=== PATIENT | male | born 1970 | race Two or more races ===

== ENCOUNTER 2021-07-07 13:55 | Inpatient (IN) | payer MEDICAID, OTHER ==
[~2021-07-07] VITALS: Ht 160 cm; Wt 61.0 kg
[2021-07-07] VITALS (7 sets, daily range): BP systolic 87–145; BP diastolic 57–93
[2021-07-07] MEDS ORDERED: ETOMIDATE (2MG/ML) 20ML VIAL IV ONE (13:59)
[2021-07-07] MEDS ORDERED: SUCCINYLCHOLINE CHLORIDE 20 MG/ML 10ML VIAL IV ONE (13:59)
[2021-07-07] MEDS: MIDAZOLAM DRIP 50 mg/50mL 50 ML IV SCH ×3 (14:02→20:42)
[2021-07-07] MEDS ORDERED: SODIUM CHLORIDE 0.9% 500 ML IVB ONE (14:15)
[2021-07-07 14:16] LABS: Hematocrit 43.2 % (41.0-53.0); Hemoglobin 14.5 g/dL (13.5-17.5); Mean Corpuscular Hemoglobin 32.4 pg (28.0-32.0); Mean Corpuscular Hgb Conc. 33.6 g/dL (32.0-36.0); Mean Corpuscular Volume 96.2 fL (80.0-100.0); Red Blood Cells 4.49 10^6/uL (4.5-5.90); Red Cell Distribution Width 12.9 % (11.8-14.3); White Blood Cell 8.2 10^3/uL (4.4-10.8)
[2021-07-07 14:20] LABS: Band Neutrophils % (manual) 0; Basophils % (manual) 0 (0.0-2.0); Blast Cells 0; Metamyelocytes % 0; Myelocytes % 0; Promyelocytes % 0; Reactive Lymphocytes 0
[2021-07-07] MEDS ORDERED: IOHEXOL 300 MG/ML 100ML BOTTLE IJ ONE ×2 (14:20→14:23)
[2021-07-07] MEDS ORDERED: fentaNYL Drip 2500mCg/250mlNS 250 ML IV ONE (14:21)
[2021-07-07] MEDS: fentaNYL Drip 2500mCg/250mlNS 250 ML IV SCH (14:23)
[2021-07-07 14:32] LABS: INR 1.05 (0.9-1.15); Partial Thromboplastin Time 26.5 sec (23.6-33.0)
[2021-07-07 14:38] LABS: Magnesium 2.7 mg/dL (1.6-2.6)
[2021-07-07 14:39] LABS: Albumin 3.3 g/dL (3.4-5.0); BUN/Creatinine Ratio 9.9; Calcium 8.4 mg/dL (8.5-10.1); Potassium 3.1 mmol/L (3.5-5.1)
[2021-07-07 14:41] LABS: Bilirubin, Total 0.6 mg/dL (0.2-1.0); Total Protein 6.7 g/dL (6.4-8.2)
[2021-07-07 14:46] LABS: Lactic Acid w/Reflex 8.5 mmol/L (0.4-2.0)
[2021-07-07] MEDS ORDERED: POTASSIUM CHL 20MEQ/100ML 100 ML IV ONE ×2 (15:15→17:15)
[2021-07-07 15:31] LABS: Eosinophils % (manual) 4 (0-7); Lymphocytes % (manual) 49 (10.0-50.0); Monocytes % (manual) 24 (0-12)
[2021-07-07 15:34] LABS: Alcohol, Urine 8.7 mg/dL (0-10); Amphetamine Screen, Urine NEGATIVE (NEGATIVE); Barbiturate Scree,Urine NEGATIVE (NEGATIVE); Benzodiazephine Screen, Urine NEGATIVE (NEGATIVE); Cannabinoid Screen, Urine NEGATIVE (NEGATIVE); Cocaine Screen, Urine NEGATIVE (NEGATIVE); Opiate Scree,Urine NEGATIVE (NEGATIVE); Phencyclidine Screen, Urine NEGATIVE (NEGATIVE)
[2021-07-07 15:42] LABS: Urine Bacteria FEW /hpf (None Seen); Urine Blood 2+ /uL (Negative); Urine Hyaline Cast FEW /lpf (0 - 2); Urine Mucus FEW (None Seen); Urine Specific Gravity 1.018 (1.001-1.035); Urine Sperm PRESENT /hpf (None Seen); Urine WBC 101 /hpf (0 - 3)
[2021-07-07] MEDS ORDERED: cefTRIAXone 1GM/50ML D5W 50 ML IV ONE ×2 (16:45→17:15)
[2021-07-07] MEDS: SODIUM CHLORIDE 0.9% 1,000 ML IV SCH (17:04)
[2021-07-07] MEDS ORDERED: HEPARIN SODIUM (PORCINE) 5000 UNITS/ML 1ML VIAL IV ONE (17:30)
[2021-07-07 17:32] LABS: Cholesterol 247 mg/dL (< 200)
[2021-07-07 17:35] LABS: HDL Cholesterol 45 mg/dL (40-59); LDL Cholesterol 172 mg/dL (< 100); Triglycerides 204 mg/dL (< 150)
[2021-07-07] MEDS ORDERED: AZITHROMYCIN 500MG/ 250ML 250 ML IV ONE (18:00)
[2021-07-07 18:18] LABS: INR 1.07 (0.9-1.15); Partial Thromboplastin Time 25.9 sec (23.6-33.0)
[2021-07-07 18:38] LABS: Basophils # (auto) 0 10 ^3/uL (0-0.2); Basophils % (auto) 0.3 % (0.0-2.0); Eosinophils # (auto) 0 10 ^3/uL (0-0.8); Eosinophils % (auto) 0.2 % (0.0-7.0); Hematocrit 41.7 % (41.0-53.0); Lymphocytes # (auto) 1.6 10 ^3/uL (0.4-5.4); Lymphocytes % (auto) 13.6 % (10.0-50.0); Mean Corpuscular Hemoglobin 31.9 pg (28.0-32.0); Mean Corpuscular Hgb Conc. 33.6 g/dL (32.0-36.0); Mean Corpuscular Volume 94.9 fL (80.0-100.0); Monocytes # (auto) 1.1 10 ^3/uL (0-1.3); Monocytes % (auto) 9.6 % (0.0-12.0); Neutrophils # (auto) 8.9 10 ^3/uL (1.6-8.6); Neutrophils % (auto) 76.3 % (37.0-80.0); Nucleated Red Blood Cells % 0.1 %; Red Cell Distribution Width 12.5 % (11.8-14.3); White Blood Cell 11.7 10^3/uL (4.4-10.8)
[2021-07-07] MEDS: HEPARIN DRIP/D5W 100UNITS/ML 250 ML IV SCH (18:40)
[2021-07-08] VITALS (39 sets, daily range): BP systolic 76–134; BP diastolic 50–83
[2021-07-08] MEDS: MIDAZOLAM DRIP 50 mg/50mL 50 ML IV SCH ×8 (00:02→23:22)
[2021-07-08 01:15] LABS: INR 1.07 (0.9-1.15); Partial Thromboplastin Time 47.4 sec (23.6-33.0)
[2021-07-08 01:49] LABS: Lactic Acid w/Reflex 2.1 mmol/L (0.4-2.0)
[2021-07-08] MEDS ORDERED: NOREPINEPHRINE 8 MG/250ML KIT 250 ML IV ONE (02:08)
[2021-07-08] MEDS: NOREPINEPHRINE 8 MG/250ML KIT 250 ML IV SCH ×2 (02:17→17:57)
[2021-07-08] MEDS: SODIUM CHLORIDE 0.9% 1,000 ML IV SCH (02:38)
[2021-07-08 06:31] LABS: Basophils # (auto) 0 10 ^3/uL (0-0.2); Basophils % (auto) 0.4 % (0.0-2.0); Eosinophils # (auto) 0 10 ^3/uL (0-0.8); Eosinophils % (auto) 0.1 % (0.0-7.0); Hematocrit 35.9 % (41.0-53.0); Hemoglobin 12.5 g/dL (13.5-17.5); Lymphocytes # (auto) 1.2 10 ^3/uL (0.4-5.4); Mean Corpuscular Hemoglobin 33.5 pg (28.0-32.0); Mean Corpuscular Hgb Conc. 34.8 g/dL (32.0-36.0); Mean Corpuscular Volume 96.2 fL (80.0-100.0); Monocytes # (auto) 0.9 10 ^3/uL (0-1.3); Monocytes % (auto) 9.8 % (0.0-12.0); Neutrophils # (auto) 6.7 10 ^3/uL (1.6-8.6); Neutrophils % (auto) 75.7 % (37.0-80.0); Red Blood Cells 3.73 10^6/uL (4.5-5.90); Red Cell Distribution Width 12.7 % (11.8-14.3); White Blood Cell 8.9 10^3/uL (4.4-10.8)
[2021-07-08 06:44] LABS: Calcium 7.5 mg/dL (8.5-10.1); Potassium 4.9 mmol/L (3.5-5.1)
[2021-07-08 06:50] LABS: Albumin 2.9 g/dL (3.4-5.0); BUN/Creatinine Ratio 20.5
[2021-07-08 06:54] LABS: Bilirubin, Total 0.7 mg/dL (0.2-1.0); Total Protein 5.8 g/dL (6.4-8.2)
[2021-07-08 09:31] LABS: INR 1.08 (0.9-1.15); Partial Thromboplastin Time 65.5 sec (23.6-33.0)
[2021-07-08] MEDS: cefTRIAXone 1GM/50ML D5W 50 ML IV SCH (09:41)
[2021-07-08] MEDS ORDERED: ENOXAPARIN SOD 40 MG/0.4 ML SYRINGE SC SCH (10:00)
[2021-07-08] MEDS ORDERED: PROPOFOL 100 ML IV ONE (11:08)
[2021-07-08] MEDS: FUROSEMIDE 40 MG/4 ML VIAL IV SCH ×2 (11:13→18:04)
[2021-07-08] MEDS: AZITHROMYCIN 500MG/ 250ML 250 ML IV SCH (11:13)
[2021-07-08] MEDS: PROPOFOL 100 ML IV SCH (11:16)
[2021-07-08] MEDS: fentaNYL Drip 2500mCg/250mlNS 250 ML IV SCH (15:51)
[2021-07-08 17:41] LABS: INR 1.06 (0.9-1.15)
[2021-07-08] MEDS: HEPARIN DRIP/D5W 100UNITS/ML 250 ML IV SCH (17:56)
[2021-07-09] VITALS (104 sets, daily range): BP systolic 93–140; BP diastolic 42–77
[2021-07-09 02:02] LABS: INR 1.07 (0.9-1.15); Partial Thromboplastin Time 52.7 sec (23.6-33.0)
[2021-07-09] MEDS: MIDAZOLAM DRIP 50 mg/50mL 50 ML IV SCH ×7 (02:42→23:20)
[2021-07-09] MEDS: fentaNYL Drip 2500mCg/250mlNS 250 ML IV SCH ×3 (02:42→23:20)
[2021-07-09] MEDS: FUROSEMIDE 40 MG/4 ML VIAL IV SCH ×2 (06:05→17:33)
[2021-07-09] MEDS: PROPOFOL 100 ML IV SCH ×3 (06:06→17:33)
[2021-07-09 06:29] LABS: Basophils # (auto) 0 10 ^3/uL (0-0.2); Basophils % (auto) 0.7 % (0.0-2.0); Eosinophils # (auto) 0.2 10 ^3/uL (0-0.8); Eosinophils % (auto) 2.1 % (0.0-7.0); Hematocrit 34.1 % (41.0-53.0); Lymphocytes # (auto) 1.4 10 ^3/uL (0.4-5.4); Lymphocytes % (auto) 19.1 % (10.0-50.0); Mean Corpuscular Hemoglobin 33.1 pg (28.0-32.0); Mean Corpuscular Hgb Conc. 35.1 g/dL (32.0-36.0); Mean Corpuscular Volume 94.2 fL (80.0-100.0); Monocytes # (auto) 0.6 10 ^3/uL (0-1.3); Neutrophils # (auto) 4.9 10 ^3/uL (1.6-8.6); Neutrophils % (auto) 69.1 % (37.0-80.0); Nucleated Red Blood Cells % 0.1 %; Red Blood Cells 3.62 10^6/uL (4.5-5.90); Red Cell Distribution Width 12.6 % (11.8-14.3); White Blood Cell 7.1 10^3/uL (4.4-10.8)
[2021-07-09 06:40] LABS: Albumin 2.5 g/dL (3.4-5.0); BUN/Creatinine Ratio 17.9; Calcium 8.1 mg/dL (8.5-10.1)
[2021-07-09 06:43] LABS: Bilirubin, Total 0.6 mg/dL (0.2-1.0); Total Protein 5.6 g/dL (6.4-8.2)
[2021-07-09] MEDS ORDERED: POTASSIUM CHL 20MEQ/100ML 100 ML IV ONE (08:00)
[2021-07-09] MEDS: cefTRIAXone 1GM/50ML D5W 50 ML IV SCH (08:36)
[2021-07-09 09:30] LABS: INR 1.05 (0.9-1.15); Partial Thromboplastin Time 42.7 sec (23.6-33.0)
[2021-07-09] MEDS: AZITHROMYCIN 500MG/ 250ML 250 ML IV SCH (10:08)
[2021-07-09] MEDS ORDERED: SPIRONOLACTONE 25 MG TAB PO ONE (11:30)
[2021-07-09] MEDS ORDERED: MAGNESIUM SULFATE 1GM/100ML 100 ML IV ONE (11:30)
[2021-07-09] MEDS: POTASSIUM CHL 20MEQ/100ML 100 ML IV SCH ×3 (11:45→15:33)
[2021-07-09] MEDS ORDERED: ACETAMINOPHEN 325 MG TAB PO ONE (15:18)
[2021-07-09] MEDS: ACETAMINOPHEN 325 MG TAB PO PRN ×2 (15:28→22:43)
[2021-07-09] MEDS: DOXYCYCLINE 100 MG TAB/CAP GT SCH ×2 (15:34→22:41)
[2021-07-09] MEDS: HEPARIN DRIP/D5W 100UNITS/ML 250 ML IV SCH (18:25)
[2021-07-09] MEDS ORDERED: HEPARIN SODIUM (PORCINE) 5000 UNITS/ML 1ML VIAL IV ONE (18:30)
[2021-07-09] MEDS: CEFEPIME 1GM/ 50ML 50 ML IV SCH (22:41)
[2021-07-09] MEDS: CARVEDILOL 3.125 MG TAB PO SCH (22:42)
[2021-07-10] VITALS (106 sets, daily range): BP systolic 93–184; BP diastolic 36–79
[2021-07-10 01:14] LABS: INR 1.07 (0.9-1.15)
[2021-07-10] MEDS: MIDAZOLAM DRIP 50 mg/50mL 50 ML IV SCH ×6 (02:02→17:37)
[2021-07-10] MEDS: PROPOFOL 100 ML IV SCH ×3 (02:02→20:57)
[2021-07-10] MEDS: NOREPINEPHRINE 8 MG/250ML KIT 250 ML IV SCH (02:15)
[2021-07-10 05:30] LABS: Potassium 3.8 mmol/L (3.5-5.1)
[2021-07-10 05:48] LABS: Albumin 2.5 g/dL (3.4-5.0); BUN/Creatinine Ratio 14.4; Bilirubin, Total 0.9 mg/dL (0.2-1.0); Calcium 8.6 mg/dL (8.5-10.1)
[2021-07-10] MEDS: FUROSEMIDE 40 MG/4 ML VIAL IV SCH ×2 (06:25→17:37)
[2021-07-10] MEDS: CEFEPIME 1GM/ 50ML 50 ML IV SCH ×3 (06:26→22:21)
[2021-07-10] MEDS: DOXYCYCLINE 100 MG TAB/CAP GT SCH ×2 (09:19→22:19)
[2021-07-10] MEDS: CARVEDILOL 3.125 MG TAB PO SCH ×2 (09:21→22:00)
[2021-07-10 10:02] LABS: Basophils # (auto) 0 10 ^3/uL (0-0.2); Basophils % (auto) 0.5 % (0.0-2.0); Eosinophils # (auto) 0.2 10 ^3/uL (0-0.8); Eosinophils % (auto) 3.7 % (0.0-7.0); Hematocrit 35.3 % (41.0-53.0); Hemoglobin 11.9 g/dL (13.5-17.5); Lymphocytes % (auto) 19.4 % (10.0-50.0); Mean Corpuscular Hemoglobin 31.9 pg (28.0-32.0); Mean Corpuscular Hgb Conc. 33.6 g/dL (32.0-36.0); Mean Corpuscular Volume 94.9 fL (80.0-100.0); Monocytes # (auto) 0.4 10 ^3/uL (0-1.3); Monocytes % (auto) 7.9 % (0.0-12.0); Neutrophils # (auto) 3.5 10 ^3/uL (1.6-8.6); Neutrophils % (auto) 68.5 % (37.0-80.0); Red Blood Cells 3.71 10^6/uL (4.5-5.90); Red Cell Distribution Width 12.8 % (11.8-14.3); White Blood Cell 5.1 10^3/uL (4.4-10.8)
[2021-07-10 10:22] LABS: INR 1.05 (0.9-1.15); Partial Thromboplastin Time 58.4 sec (23.6-33.0)
[2021-07-10] MEDS ORDERED: POTASSIUM EFFERVESENT TAB 25 MEQ PO ONE (11:45)
[2021-07-10] MEDS ORDERED: POTASSIUM CHL 20MEQ/100ML 100 ML IV ONE (11:45)
[2021-07-10] MEDS: ACETAMINOPHEN 325 MG TAB PO PRN ×2 (12:31→20:08)
[2021-07-10] MEDS: ENALAPRIL MALEATE 2.5 MG TAB PO SCH (12:31)
[2021-07-10] MEDS ORDERED: Glucerna 1.2 Cal 1Liter BOTTLE GT SCH (16:00)
[2021-07-10 16:38] LABS: INR 1.05 (0.9-1.15); Partial Thromboplastin Time 31.7 sec (23.6-33.0)
[2021-07-10] MEDS ORDERED: HEPARIN SODIUM (PORCINE) 5000 UNITS/ML 1ML VIAL IV ONE (17:15)
[2021-07-10] MEDS: HEPARIN DRIP/D5W 100UNITS/ML 250 ML IV SCH (17:45)
[2021-07-10] MEDS: fentaNYL Drip 2500mCg/250mlNS 250 ML IV SCH (17:46)
[2021-07-10] MEDS: Pro-Stat SF 30ml Vanilla GT SCH (22:19)
[2021-07-11] VITALS (102 sets, daily range): BP systolic 106–186; BP diastolic 41–85
[2021-07-11] MEDS: MIDAZOLAM DRIP 50 mg/50mL 50 ML IV SCH ×8 (01:22→20:04)
[2021-07-11] MEDS: NOREPINEPHRINE 8 MG/250ML KIT 250 ML IV SCH (02:15)
[2021-07-11] MEDS: PROPOFOL 100 ML IV SCH ×3 (03:10→17:21)
[2021-07-11 05:14] LABS: Basophils # (auto) 0 10 ^3/uL (0-0.2); Basophils % (auto) 0.5 % (0.0-2.0); Eosinophils # (auto) 0.2 10 ^3/uL (0-0.8); Eosinophils % (auto) 2.9 % (0.0-7.0); Hematocrit 35.3 % (41.0-53.0); Hemoglobin 12.3 g/dL (13.5-17.5); Lymphocytes % (auto) 16.6 % (10.0-50.0); Mean Corpuscular Hgb Conc. 34.8 g/dL (32.0-36.0); Mean Corpuscular Volume 94.7 fL (80.0-100.0); Monocytes # (auto) 0.6 10 ^3/uL (0-1.3); Monocytes % (auto) 9.9 % (0.0-12.0); Neutrophils # (auto) 4.1 10 ^3/uL (1.6-8.6); Neutrophils % (auto) 70.1 % (37.0-80.0); Nucleated Red Blood Cells % 0.1 %; Red Blood Cells 3.73 10^6/uL (4.5-5.90); Red Cell Distribution Width 12.6 % (11.8-14.3); White Blood Cell 5.8 10^3/uL (4.4-10.8)
[2021-07-11 05:30] LABS: Calcium 8.6 mg/dL (8.5-10.1); Potassium 3.3 mmol/L (3.5-5.1)
[2021-07-11 05:33] LABS: BUN/Creatinine Ratio 15.7
[2021-07-11] MEDS: ACETAMINOPHEN 325 MG TAB PO PRN ×3 (06:01→20:03)
[2021-07-11] MEDS ORDERED: POTASSIUM EFFERVESENT TAB 25 MEQ GT ONE (06:30)
[2021-07-11] MEDS: CEFEPIME 1GM/ 50ML 50 ML IV SCH ×3 (06:39→22:30)
[2021-07-11] MEDS: FUROSEMIDE 40 MG/4 ML VIAL IV SCH ×2 (06:39→17:21)
[2021-07-11 08:44] LABS: INR 1.12 (0.9-1.15); Partial Thromboplastin Time 65.2 sec (23.6-33.0)
[2021-07-11] MEDS: POTASSIUM EFFERVESENT TAB 25 MEQ PO SCH (10:05)
[2021-07-11] MEDS: DOXYCYCLINE 100 MG TAB/CAP GT SCH ×2 (10:05→22:42)
[2021-07-11] MEDS: CARVEDILOL 3.125 MG TAB PO SCH ×2 (10:05→22:46)
[2021-07-11] MEDS: Pro-Stat SF 30ml Vanilla GT SCH ×2 (10:06→22:00)
[2021-07-11] MEDS: ENALAPRIL MALEATE 2.5 MG TAB PO SCH (10:06)
[2021-07-11] MEDS: fentaNYL Drip 2500mCg/250mlNS 250 ML IV SCH (10:22)
[2021-07-11] MEDS: HEPARIN DRIP/D5W 100UNITS/ML 250 ML IV SCH (13:58)
[2021-07-11] MEDS: SODIUM CHLOR 0.9% PF (SALINE LOCK) 10ML VIAL/SYR IV SCH (22:44)
[2021-07-12] VITALS (86 sets, daily range): BP systolic 86–183; BP diastolic 39–101
[2021-07-12] MEDS: fentaNYL Drip 2500mCg/250mlNS 250 ML IV SCH ×2 (01:00→17:31)
[2021-07-12 01:03] LABS: INR 1.11 (0.9-1.15)
[2021-07-12 01:07] LABS: Partial Thromboplastin Time 85.1 sec (23.6-33.0)
[2021-07-12] MEDS: NOREPINEPHRINE 8 MG/250ML KIT 250 ML IV SCH (02:15)
[2021-07-12] MEDS: ACETAMINOPHEN 325 MG TAB PO PRN ×2 (05:00→13:48)
[2021-07-12] MEDS: CEFEPIME 1GM/ 50ML 50 ML IV SCH ×3 (05:13→20:53)
[2021-07-12] MEDS: FUROSEMIDE 40 MG/4 ML VIAL IV SCH ×2 (05:21→19:00)
[2021-07-12 05:26] LABS: Basophils # (auto) 0 10 ^3/uL (0-0.2); Basophils % (auto) 0.8 % (0.0-2.0); Eosinophils # (auto) 0.2 10 ^3/uL (0-0.8); Eosinophils % (auto) 4.4 % (0.0-7.0); Hematocrit 34.6 % (41.0-53.0); Hemoglobin 11.8 g/dL (13.5-17.5); Lymphocytes # (auto) 0.8 10 ^3/uL (0.4-5.4); Lymphocytes % (auto) 20.2 % (10.0-50.0); Mean Corpuscular Hemoglobin 32.3 pg (28.0-32.0); Monocytes # (auto) 0.4 10 ^3/uL (0-1.3); Monocytes % (auto) 9.2 % (0.0-12.0); Neutrophils # (auto) 2.7 10 ^3/uL (1.6-8.6); Neutrophils % (auto) 65.4 % (37.0-80.0); Nucleated Red Blood Cells % 0.1 %; Red Blood Cells 3.64 10^6/uL (4.5-5.90); Red Cell Distribution Width 12.6 % (11.8-14.3); White Blood Cell 4.1 10^3/uL (4.4-10.8)
[2021-07-12 05:41] LABS: Calcium 8.7 mg/dL (8.5-10.1); Potassium 3.3 mmol/L (3.5-5.1)
[2021-07-12 05:44] LABS: BUN/Creatinine Ratio 21.1
[2021-07-12] MEDS: HEPARIN DRIP/D5W 100UNITS/ML 250 ML IV SCH (06:35)
[2021-07-12] MEDS: MIDAZOLAM DRIP 50 mg/50mL 50 ML IV SCH ×7 (07:22→20:42)
[2021-07-12 09:52] LABS: INR 1.11 (0.9-1.15)
[2021-07-12 09:54] LABS: Partial Thromboplastin Time 71.7 sec (23.6-33.0)
[2021-07-12] MEDS: Pro-Stat SF 30ml Vanilla GT SCH ×2 (10:00→20:50)
[2021-07-12] MEDS ORDERED: HEPARIN DRIP/D5W 100UNITS/ML 250 ML IV SCH (10:30)
[2021-07-12] MEDS: CARVEDILOL 3.125 MG TAB PO SCH ×2 (10:52→20:52)
[2021-07-12] MEDS: PROPOFOL 100 ML IV SCH ×3 (10:52→19:01)
[2021-07-12] MEDS: SODIUM CHLOR 0.9% PF (SALINE LOCK) 10ML VIAL/SYR IV SCH ×2 (10:52→20:53)
[2021-07-12] MEDS: DOXYCYCLINE 100 MG TAB/CAP GT SCH ×2 (10:53→20:53)
[2021-07-12] MEDS: ENALAPRIL MALEATE 2.5 MG TAB PO SCH (10:53)
[2021-07-12] MEDS: POTASSIUM EFFERVESENT TAB 25 MEQ PO SCH (10:56)
[2021-07-12 15:03] LABS: Magnesium 1.9 mg/dL (1.6-2.6); Phosphorus 4.3 mg/dL (2.5-4.90)
[2021-07-12] MEDS ORDERED: MAGNESIUM SULFATE 1GM/100ML 100 ML IV ONE (15:30)
[2021-07-13] VITALS (98 sets, daily range): BP systolic 73–185; BP diastolic 29–119
[2021-07-13] MEDS: MIDAZOLAM DRIP 50 mg/50mL 50 ML IV SCH ×7 (00:02→22:44)
[2021-07-13] MEDS: PROPOFOL 100 ML IV SCH ×3 (01:03→14:39)
[2021-07-13] MEDS: NOREPINEPHRINE 8 MG/250ML KIT 250 ML IV SCH ×2 (02:15→03:36)
[2021-07-13] MEDS: FUROSEMIDE 40 MG/4 ML VIAL IV SCH (06:00)
[2021-07-13] MEDS: CEFEPIME 1GM/ 50ML 50 ML IV SCH ×3 (06:15→22:32)
[2021-07-13] MEDS: fentaNYL Drip 2500mCg/250mlNS 250 ML IV SCH ×2 (08:45→22:46)
[2021-07-13] MEDS: SODIUM CHLOR 0.9% PF (SALINE LOCK) 10ML VIAL/SYR IV SCH ×2 (10:00→22:33)
[2021-07-13] MEDS: POTASSIUM EFFERVESENT TAB 25 MEQ PO SCH (10:00)
[2021-07-13] MEDS: CARVEDILOL 3.125 MG TAB PO SCH (10:00)
[2021-07-13] MEDS: Pro-Stat SF 30ml Vanilla GT SCH ×2 (10:00→22:00)
[2021-07-13] MEDS: ENALAPRIL MALEATE 2.5 MG TAB PO SCH (10:00)
[2021-07-13 10:18] LABS: Albumin 2.6 g/dL (3.4-5.0); Potassium 3.7 mmol/L (3.5-5.1)
[2021-07-13 10:22] LABS: BUN/Creatinine Ratio 25.7; Bilirubin, Total 0.6 mg/dL (0.2-1.0); Total Protein 6.8 g/dL (6.4-8.2)
[2021-07-13] MEDS ORDERED: POTASSIUM CHL 20MEQ/100ML 100 ML IV ONE (11:00)
[2021-07-13] MEDS: POTASSIUM CHL 20MEQ/100ML 100 ML IV SCH ×2 (12:40→15:29)
[2021-07-13] MEDS ORDERED: TPN PER PHARMACY 0 ML IV SCH (13:15)
[2021-07-13] MEDS ORDERED: PANTOPRAZOLE 40 MG/10 ML VIAL INJ IV ONE (13:45)
[2021-07-13] MEDS: DOXYCYCLINE 100MG/250ML 250 ML IV SCH (14:06)
[2021-07-13] MEDS ORDERED: DEXTROSE (50%) 50ML SYRG IV SCH (15:45)
[2021-07-13] MEDS: InsuLIN REG 1unit/0.01ml Soln (100units/ml) SC SCH (18:00)
[2021-07-13] MEDS: ACCU-CHEK COMFORT CURVE STRIP VI SCH (18:10)
[2021-07-13] MEDS ORDERED: AMINO ACID INFUSION IN D10W 1,000 ML IV NR (20:00)
[2021-07-14] VITALS (100 sets, daily range): BP systolic 72–180; BP diastolic 40–113
[2021-07-14] MEDS: DOXYCYCLINE 100MG/250ML 250 ML IV SCH ×2 (01:19→17:57)
[2021-07-14 04:51] LABS: Potassium 3.8 mmol/L (3.5-5.1)
[2021-07-14 04:57] LABS: Albumin 2.5 g/dL (3.4-5.0); BUN/Creatinine Ratio 28.8; Calcium 8.7 mg/dL (8.5-10.1)
[2021-07-14] MEDS: PROPOFOL 100 ML IV SCH ×2 (04:57→13:22)
[2021-07-14 04:59] LABS: Bilirubin, Total 0.6 mg/dL (0.2-1.0); Phosphorus 2.5 mg/dL (2.5-4.90); Total Protein 6.3 g/dL (6.4-8.2)
[2021-07-14] MEDS: MIDAZOLAM DRIP 50 mg/50mL 50 ML IV SCH ×3 (05:34→17:51)
[2021-07-14] MEDS: CEFEPIME 1GM/ 50ML 50 ML IV SCH ×3 (05:34→22:20)
[2021-07-14] MEDS: ACCU-CHEK COMFORT CURVE STRIP VI SCH ×5 (05:35→23:55)
[2021-07-14] MEDS: InsuLIN REG 1unit/0.01ml Soln (100units/ml) SC SCH ×4 (05:40→18:00)
[2021-07-14] MEDS ORDERED: DIGOXIN (250MCG/ML) 2 ML AMPULE IV ONE (08:15)
[2021-07-14] MEDS: fentaNYL Drip 2500mCg/250mlNS 250 ML IV SCH (09:22)
[2021-07-14] MEDS: Pro-Stat SF 30ml Vanilla GT SCH ×2 (10:00→22:00)
[2021-07-14] MEDS: PANTOPRAZOLE 40 MG/10 ML VIAL INJ IV SCH (10:12)
[2021-07-14] MEDS: FUROSEMIDE 20 MG/2 ML VIAL IV SCH (10:13)
[2021-07-14] MEDS: SODIUM CHLOR 0.9% PF (SALINE LOCK) 10ML VIAL/SYR IV SCH ×2 (10:13→22:20)
[2021-07-14] MEDS: AMIODARONE HCL 200 MG TAB PO SCH ×2 (10:13→22:20)
[2021-07-14] MEDS: ACETAMINOPHEN 325 MG TAB PO PRN (11:16)
[2021-07-14] MEDS: METOCLOPRAMIDE HCL 5MG/ml INJ 2ml VIAL IV SCH (17:57)
[2021-07-14] MEDS ORDERED: METOCLOPRAMIDE HCL 5MG/ml INJ 2ml VIAL IV PRN (18:00)
[2021-07-14] MEDS ORDERED: TPN PER PHARMACY IV NR ×7 (20:00)
[2021-07-15] VITALS (95 sets, daily range): BP systolic 70–172; BP diastolic 33–101
[2021-07-15] MEDS: InsuLIN REG 1unit/0.01ml Soln (100units/ml) SC SCH ×4 (00:13→18:00)
[2021-07-15] MEDS: PROPOFOL 100 ML IV SCH ×3 (00:24→23:54)
[2021-07-15] MEDS: NOREPINEPHRINE 8 MG/250ML KIT 250 ML IV SCH (00:53)
[2021-07-15] MEDS: MIDAZOLAM DRIP 50 mg/50mL 50 ML IV SCH ×5 (02:11→22:51)
[2021-07-15] MEDS: METOCLOPRAMIDE HCL 5MG/ml INJ 2ml VIAL IV SCH ×3 (02:22→18:41)
[2021-07-15 03:51] LABS: Basophils # (auto) 0 10 ^3/uL (0-0.2); Basophils % (auto) 0.7 % (0.0-2.0); Eosinophils # (auto) 0.3 10 ^3/uL (0-0.8); Eosinophils % (auto) 4.9 % (0.0-7.0); Hematocrit 33.9 % (41.0-53.0); Hemoglobin 11.7 g/dL (13.5-17.5); Lymphocytes # (auto) 1.1 10 ^3/uL (0.4-5.4); Lymphocytes % (auto) 18.5 % (10.0-50.0); Mean Corpuscular Hemoglobin 32.2 pg (28.0-32.0); Mean Corpuscular Hgb Conc. 34.6 g/dL (32.0-36.0); Monocytes # (auto) 0.7 10 ^3/uL (0-1.3); Monocytes % (auto) 12.3 % (0.0-12.0); Neutrophils # (auto) 3.7 10 ^3/uL (1.6-8.6); Neutrophils % (auto) 63.6 % (37.0-80.0); Nucleated Red Blood Cells % 0.1 %; Red Blood Cells 3.65 10^6/uL (4.5-5.90); Red Cell Distribution Width 12.5 % (11.8-14.3); White Blood Cell 5.8 10^3/uL (4.4-10.8)
[2021-07-15 04:02] LABS: Albumin 2.5 g/dL (3.4-5.0); Calcium 8.7 mg/dL (8.5-10.1); Magnesium 2.2 mg/dL (1.6-2.6); Potassium 3.6 mmol/L (3.5-5.1)
[2021-07-15 04:05] LABS: BUN/Creatinine Ratio 29.5; Bilirubin, Total 0.4 mg/dL (0.2-1.0); Phosphorus 3.5 mg/dL (2.5-4.90); Total Protein 6.8 g/dL (6.4-8.2)
[2021-07-15] MEDS: CEFEPIME 1GM/ 50ML 50 ML IV SCH ×3 (05:34→21:15)
[2021-07-15] MEDS: ACCU-CHEK COMFORT CURVE STRIP VI SCH ×3 (06:00→18:41)
[2021-07-15] MEDS: DOXYCYCLINE 100MG/250ML 250 ML IV SCH ×2 (06:00→18:41)
[2021-07-15] MEDS: Pro-Stat SF 30ml Vanilla GT SCH ×2 (09:59→20:50)
[2021-07-15] MEDS: FUROSEMIDE 20 MG/2 ML VIAL IV SCH (10:19)
[2021-07-15] MEDS: PANTOPRAZOLE 40 MG/10 ML VIAL INJ IV SCH (10:19)
[2021-07-15] MEDS: SODIUM CHLOR 0.9% PF (SALINE LOCK) 10ML VIAL/SYR IV SCH ×2 (10:20→20:50)
[2021-07-15] MEDS: AMIODARONE HCL 200 MG TAB PO SCH ×2 (10:21→21:20)
[2021-07-15] MEDS: POTASSIUM CHL 20MEQ/100ML 100 ML IV SCH ×2 (10:40→13:10)
[2021-07-15] MEDS: fentaNYL Drip 2500mCg/250mlNS 250 ML IV SCH ×2 (10:56→21:44)
[2021-07-15] MEDS ORDERED: POTASSIUM CHL 20MEQ/100ML 100 ML IV ONE (15:00)
[2021-07-15] MEDS ORDERED: TPN PER PHARMACY IV NR ×11 (20:00)
[2021-07-15 20:57] LABS: Potassium 4.3 mmol/L (3.5-5.1)
[2021-07-15] MEDS: chlordiazePOXIDE HCL 25 MG CAP PO SCH (21:19)
[2021-07-16] VITALS (96 sets, daily range): BP systolic 77–174; BP diastolic 37–108
[2021-07-16] MEDS: ACCU-CHEK COMFORT CURVE STRIP VI SCH ×5 (00:03→23:57)
[2021-07-16] MEDS: InsuLIN REG 1unit/0.01ml Soln (100units/ml) SC SCH ×5 (00:12→23:58)
[2021-07-16] MEDS: NOREPINEPHRINE 8 MG/250ML KIT 250 ML IV SCH (00:21)
[2021-07-16] MEDS: METOCLOPRAMIDE HCL 5MG/ml INJ 2ml VIAL IV SCH ×3 (02:00→18:35)
[2021-07-16] MEDS: MIDAZOLAM DRIP 50 mg/50mL 50 ML IV SCH ×6 (04:42→21:22)
[2021-07-16] MEDS: DOXYCYCLINE 100MG/250ML 250 ML IV SCH ×2 (05:02→18:34)
[2021-07-16] MEDS: CEFEPIME 1GM/ 50ML 50 ML IV SCH ×3 (05:21→22:34)
[2021-07-16 07:37] LABS: Albumin 2.5 g/dL (3.4-5.0); Calcium 8.8 mg/dL (8.5-10.1); Magnesium 2.2 mg/dL (1.6-2.6); Potassium 3.9 mmol/L (3.5-5.1)
[2021-07-16 07:40] LABS: BUN/Creatinine Ratio 24.7; Bilirubin, Total 0.4 mg/dL (0.2-1.0); Phosphorus 3.6 mg/dL (2.5-4.90); Total Protein 6.6 g/dL (6.4-8.2)
[2021-07-16] MEDS: PROPOFOL 100 ML IV SCH ×3 (08:40→22:00)
[2021-07-16] MEDS: Pro-Stat SF 30ml Vanilla GT SCH ×2 (10:00→22:35)
[2021-07-16] MEDS: chlordiazePOXIDE HCL 25 MG CAP PO SCH ×2 (10:05→22:34)
[2021-07-16] MEDS: SODIUM CHLOR 0.9% PF (SALINE LOCK) 10ML VIAL/SYR IV SCH ×2 (10:05→22:35)
[2021-07-16] MEDS: PANTOPRAZOLE 40 MG/10 ML VIAL INJ IV SCH (10:05)
[2021-07-16] MEDS: AMIODARONE HCL 200 MG TAB PO SCH ×2 (10:05→22:36)
[2021-07-16] MEDS: FUROSEMIDE 20 MG/2 ML VIAL IV SCH (10:05)
[2021-07-16] MEDS: LACTULOSE 20Gm/30ML SOLN PO SCH (10:05)
[2021-07-16] MEDS: ACETAMINOPHEN 325 MG TAB PO PRN (15:31)
[2021-07-16] MEDS ORDERED: TPN PER PHARMACY IV NR ×10 (20:00)
[2021-07-17] VITALS (99 sets, daily range): BP systolic 85–160; BP diastolic 38–87
[2021-07-17] MEDS: MIDAZOLAM DRIP 50 mg/50mL 50 ML IV SCH ×7 (00:42→18:14)
[2021-07-17] MEDS: METOCLOPRAMIDE HCL 5MG/ml INJ 2ml VIAL IV SCH ×3 (01:43→16:45)
[2021-07-17] MEDS: NOREPINEPHRINE 8 MG/250ML KIT 250 ML IV SCH (02:15)
[2021-07-17 04:55] LABS: Albumin 2.9 g/dL (3.4-5.0); Calcium 9.2 mg/dL (8.5-10.1); Magnesium 2.3 mg/dL (1.6-2.6); Potassium 4.3 mmol/L (3.5-5.1)
[2021-07-17 04:59] LABS: BUN/Creatinine Ratio 22.1; Bilirubin, Total 0.6 mg/dL (0.2-1.0); Phosphorus 3.3 mg/dL (2.5-4.90); Total Protein 7.6 g/dL (6.4-8.2)
[2021-07-17] MEDS: DOXYCYCLINE 100MG/250ML 250 ML IV SCH ×2 (05:08→16:45)
[2021-07-17] MEDS: ACCU-CHEK COMFORT CURVE STRIP VI SCH ×3 (06:31→17:18)
[2021-07-17] MEDS: InsuLIN REG 1unit/0.01ml Soln (100units/ml) SC SCH ×3 (06:33→17:18)
[2021-07-17] MEDS: CEFEPIME 1GM/ 50ML 50 ML IV SCH ×3 (07:35→22:12)
[2021-07-17] MEDS: Pro-Stat SF 30ml Vanilla GT SCH ×2 (08:59→22:16)
[2021-07-17] MEDS: SODIUM CHLOR 0.9% PF (SALINE LOCK) 10ML VIAL/SYR IV SCH ×2 (08:59→22:16)
[2021-07-17] MEDS: LACTULOSE 20Gm/30ML SOLN PO SCH (09:08)
[2021-07-17] MEDS: FUROSEMIDE 20 MG/2 ML VIAL IV SCH (09:09)
[2021-07-17] MEDS: chlordiazePOXIDE HCL 25 MG CAP PO SCH ×2 (09:09→22:15)
[2021-07-17] MEDS: PANTOPRAZOLE 40 MG/10 ML VIAL INJ IV SCH (09:09)
[2021-07-17] MEDS: fentaNYL Drip 2500mCg/250mlNS 250 ML IV SCH (09:10)
[2021-07-17] MEDS: AMIODARONE HCL 200 MG TAB PO SCH ×2 (09:10→22:16)
[2021-07-17] MEDS: ACETAMINOPHEN 325 MG TAB PO PRN ×2 (09:36→18:44)
[2021-07-17 09:50] LABS: Hepatitis B Surface Antibody Negative (Negative)
[2021-07-17 11:21] LABS: Hepatitis A Total Antibody Positive (Negative)
[2021-07-17 12:02] LABS: Hepatitis C Antibody Negative (Negative)
[2021-07-17] MEDS ORDERED: TPN PER PHARMACY IV NR ×9 (20:00)
[2021-07-17] MEDS: PROPOFOL 100 ML IV SCH (21:12)
[2021-07-18] VITALS (95 sets, daily range): BP systolic 86–162; BP diastolic 45–92
[2021-07-18] MEDS: MIDAZOLAM DRIP 50 mg/50mL 50 ML IV SCH ×6 (00:02→12:18)
[2021-07-18] MEDS: ACCU-CHEK COMFORT CURVE STRIP VI SCH ×5 (00:26→17:04)
[2021-07-18] MEDS: InsuLIN REG 1unit/0.01ml Soln (100units/ml) SC SCH ×4 (00:28→16:59)
[2021-07-18] MEDS: ACETAMINOPHEN 325 MG TAB PO PRN (00:45)
[2021-07-18] MEDS: METOCLOPRAMIDE HCL 5MG/ml INJ 2ml VIAL IV SCH ×3 (01:27→16:50)
[2021-07-18] MEDS: PROPOFOL 100 ML IV SCH ×2 (01:28→06:50)
[2021-07-18] MEDS: NOREPINEPHRINE 8 MG/250ML KIT 250 ML IV SCH (02:15)
[2021-07-18 04:40] LABS: Basophils # (auto) 0.1 10 ^3/uL (0-0.2); Basophils % (auto) 0.6 % (0.0-2.0); Eosinophils # (auto) 0.1 10 ^3/uL (0-0.8); Eosinophils % (auto) 0.6 % (0.0-7.0); Hematocrit 33.8 % (41.0-53.0); Hemoglobin 12.1 g/dL (13.5-17.5); Lymphocytes % (auto) 9.2 % (10.0-50.0); Mean Corpuscular Hemoglobin 32.8 pg (28.0-32.0); Mean Corpuscular Hgb Conc. 35.7 g/dL (32.0-36.0); Mean Corpuscular Volume 91.7 fL (80.0-100.0); Monocytes # (auto) 0.9 10 ^3/uL (0-1.3); Monocytes % (auto) 8.6 % (0.0-12.0); Neutrophils # (auto) 8.6 10 ^3/uL (1.6-8.6); Red Blood Cells 3.69 10^6/uL (4.5-5.90); Red Cell Distribution Width 12.5 % (11.8-14.3); White Blood Cell 10.6 10^3/uL (4.4-10.8)
[2021-07-18 04:55] LABS: Calcium 9.3 mg/dL (8.5-10.1); Magnesium 2.2 mg/dL (1.6-2.6); Potassium 3.7 mmol/L (3.5-5.1)
[2021-07-18 04:57] LABS: BUN/Creatinine Ratio 26.8; Phosphorus 3.4 mg/dL (2.5-4.90)
[2021-07-18] MEDS: DOXYCYCLINE 100MG/250ML 250 ML IV SCH ×2 (06:36→16:50)
[2021-07-18] MEDS: CEFEPIME 1GM/ 50ML 50 ML IV SCH ×3 (06:44→22:20)
[2021-07-18] MEDS: Pro-Stat SF 30ml Vanilla GT SCH ×2 (07:21→22:00)
[2021-07-18] MEDS: SODIUM CHLOR 0.9% PF (SALINE LOCK) 10ML VIAL/SYR IV SCH ×2 (08:58→22:20)
[2021-07-18] MEDS: LACTULOSE 20Gm/30ML SOLN PO SCH (08:58)
[2021-07-18] MEDS: FUROSEMIDE 20 MG/2 ML VIAL IV SCH (08:58)
[2021-07-18] MEDS: chlordiazePOXIDE HCL 25 MG CAP PO SCH ×2 (08:58→22:20)
[2021-07-18] MEDS: PANTOPRAZOLE 40 MG/10 ML VIAL INJ IV SCH (08:58)
[2021-07-18] MEDS: AMIODARONE HCL 200 MG TAB PO SCH ×2 (08:59→22:20)
[2021-07-18] MEDS: fentaNYL Drip 2500mCg/250mlNS 250 ML IV SCH (10:39)
[2021-07-18] MEDS ORDERED: TPN PER PHARMACY IV NR ×10 (20:00)
[2021-07-19] VITALS (21 sets, daily range): BP systolic 118–161; BP diastolic 68–91
[2021-07-19] MEDS: METOCLOPRAMIDE HCL 5MG/ml INJ 2ml VIAL IV SCH ×3 (01:58→17:57)
[2021-07-19 04:52] LABS: Potassium 3.3 mmol/L (3.5-5.1)
[2021-07-19 04:58] LABS: Albumin 2.8 g/dL (3.4-5.0); BUN/Creatinine Ratio 30.8; Basophils # (auto) 0 10 ^3/uL (0-0.2); Basophils % (auto) 0.5 % (0.0-2.0); Calcium 9.4 mg/dL (8.5-10.1); Eosinophils # (auto) 0.2 10 ^3/uL (0-0.8); Eosinophils % (auto) 2.1 % (0.0-7.0); Hematocrit 35.8 % (41.0-53.0); Hemoglobin 12.1 g/dL (13.5-17.5); Lymphocytes # (auto) 1.1 10 ^3/uL (0.4-5.4); Lymphocytes % (auto) 11.4 % (10.0-50.0); Magnesium 1.9 mg/dL (1.6-2.6); Mean Corpuscular Hemoglobin 31.3 pg (28.0-32.0); Mean Corpuscular Hgb Conc. 33.9 g/dL (32.0-36.0); Mean Corpuscular Volume 92.4 fL (80.0-100.0); Monocytes # (auto) 0.8 10 ^3/uL (0-1.3); Monocytes % (auto) 8.4 % (0.0-12.0); Neutrophils # (auto) 7.3 10 ^3/uL (1.6-8.6); Neutrophils % (auto) 77.6 % (37.0-80.0); Nucleated Red Blood Cells % 0.1 %; Red Blood Cells 3.88 10^6/uL (4.5-5.90); Red Cell Distribution Width 12.5 % (11.8-14.3); White Blood Cell 9.4 10^3/uL (4.4-10.8)
[2021-07-19 05:01] LABS: Bilirubin, Total 0.8 mg/dL (0.2-1.0); Phosphorus 2.6 mg/dL (2.5-4.90); Total Protein 7.5 g/dL (6.4-8.2)
[2021-07-19] MEDS: DOXYCYCLINE 100MG/250ML 250 ML IV SCH ×2 (06:19→17:55)
[2021-07-19] MEDS: ACCU-CHEK COMFORT CURVE STRIP VI SCH ×2 (06:19→11:46)
[2021-07-19] MEDS: CEFEPIME 1GM/ 50ML 50 ML IV SCH ×3 (06:19→23:00)
[2021-07-19] MEDS: InsuLIN REG 1unit/0.01ml Soln (100units/ml) SC SCH ×3 (06:21→11:45)
[2021-07-19] MEDS: POTASSIUM CHL 20MEQ/100ML 100 ML IV SCH ×2 (08:15→10:15)
[2021-07-19] MEDS: MIDAZOLAM DRIP 50 mg/50mL 50 ML IV SCH ×2 (09:22→12:42)
[2021-07-19] MEDS: PANTOPRAZOLE 40 MG/10 ML VIAL INJ IV SCH (09:23)
[2021-07-19] MEDS: chlordiazePOXIDE HCL 25 MG CAP PO SCH ×2 (09:23→23:01)
[2021-07-19] MEDS: LACTULOSE 20Gm/30ML SOLN PO SCH (09:24)
[2021-07-19] MEDS: AMIODARONE HCL 200 MG TAB PO SCH ×2 (09:24→23:01)
[2021-07-19] MEDS: FUROSEMIDE 20 MG/2 ML VIAL IV SCH (09:24)
[2021-07-19] MEDS: SODIUM CHLOR 0.9% PF (SALINE LOCK) 10ML VIAL/SYR IV SCH ×2 (09:25→23:00)
[2021-07-19] MEDS: Pro-Stat SF 30ml Vanilla GT SCH ×2 (09:25→23:00)
[2021-07-19] MEDS ORDERED: POTASSIUM PHOSPHATE 22 MEQ in SODIUM CHL 0.9% 100 ML IV ONE (10:00)
[2021-07-19] MEDS: PROPOFOL 100 ML IV SCH (11:15)
[2021-07-19] MEDS: ACETAMINOPHEN 325 MG TAB PO PRN ×2 (11:38→17:56)
[2021-07-19] MEDS ORDERED: SODIUM PHOSP 20MEQ(15MMOL) IN NS 100 ML IV ONE (12:00)
[2021-07-19] MEDS ORDERED: TPN PER PHARMACY IV NR ×11 (20:00)
[2021-07-20] MEDS: METOCLOPRAMIDE HCL 5MG/ml INJ 2ml VIAL IV SCH ×3 (03:24→17:49)
[2021-07-20 05:00] VITALS: BP 143/90
[2021-07-20] MEDS: DOXYCYCLINE 100MG/250ML 250 ML IV SCH (05:22)
[2021-07-20 05:56] LABS: Calcium 9.7 mg/dL (8.5-10.1)
[2021-07-20 05:57] LABS: Basophils # (auto) 0 10 ^3/uL (0-0.2); Basophils % (auto) 0.5 % (0.0-2.0); Eosinophils # (auto) 0.2 10 ^3/uL (0-0.8); Eosinophils % (auto) 2.6 % (0.0-7.0); Hematocrit 34.8 % (41.0-53.0); Hemoglobin 11.8 g/dL (13.5-17.5); Lymphocytes % (auto) 11.7 % (10.0-50.0); Mean Corpuscular Hemoglobin 31.4 pg (28.0-32.0); Mean Corpuscular Hgb Conc. 33.8 g/dL (32.0-36.0); Mean Corpuscular Volume 93.1 fL (80.0-100.0); Monocytes # (auto) 0.7 10 ^3/uL (0-1.3); Monocytes % (auto) 8.3 % (0.0-12.0); Neutrophils # (auto) 6.4 10 ^3/uL (1.6-8.6); Neutrophils % (auto) 76.9 % (37.0-80.0); Nucleated Red Blood Cells % 0.3 %; Red Blood Cells 3.74 10^6/uL (4.5-5.90); Red Cell Distribution Width 12.4 % (11.8-14.3); White Blood Cell 8.4 10^3/uL (4.4-10.8)
[2021-07-20] MEDS: CEFEPIME 1GM/ 50ML 50 ML IV SCH ×2 (07:28→13:28)
[2021-07-20 09:02] VITALS: BP 116/56
[2021-07-20] MEDS: Pro-Stat SF 30ml Vanilla GT SCH (09:19)
[2021-07-20] MEDS: FUROSEMIDE 20 MG/2 ML VIAL IV SCH (09:20)
[2021-07-20] MEDS: PANTOPRAZOLE 40 MG/10 ML VIAL INJ IV SCH (09:20)
[2021-07-20] MEDS: SODIUM CHLOR 0.9% PF (SALINE LOCK) 10ML VIAL/SYR IV SCH ×2 (09:20→22:52)
[2021-07-20] MEDS: LACTULOSE 20Gm/30ML SOLN PO SCH (09:20)
[2021-07-20] MEDS: AMIODARONE HCL 200 MG TAB PO SCH ×2 (09:21→22:52)
[2021-07-20] MEDS: chlordiazePOXIDE HCL 25 MG CAP PO SCH ×2 (09:21→22:53)
[2021-07-20] MEDS ORDERED: LORazepam 2MG/ML-1ML VIAL IV PRN (09:45)
[2021-07-20 13:00] VITALS: BP 127/70
[2021-07-20] MEDS ORDERED: ENOXAPARIN SOD 40 MG/0.4 ML SYRINGE SC ONE (16:30)
[2021-07-20 16:44] VITALS: BP 137/83
[2021-07-20] MEDS: ACETAMINOPHEN 325 MG TAB PO PRN (17:50)
[2021-07-20 22:21] VITALS: BP 149/75
[2021-07-20] MEDS: guaiFENesin 200 MG/10 ML UD PO PRN (22:53)
[2021-07-20] MEDS: Pro-Stat SF 30ml Vanilla PO SCH (22:53)
[2021-07-21] MEDS: METOCLOPRAMIDE HCL 5MG/ml INJ 2ml VIAL IV SCH ×3 (02:07→17:24)
[2021-07-21] MEDS: ACETAMINOPHEN 325 MG TAB PO PRN ×2 (04:04→14:31)
[2021-07-21 05:50] LABS: Basophils # (auto) 0.1 10 ^3/uL (0-0.2); Basophils % (auto) 0.9 % (0.0-2.0); Eosinophils # (auto) 0.3 10 ^3/uL (0-0.8); Eosinophils % (auto) 3.5 % (0.0-7.0); Hematocrit 33.7 % (41.0-53.0); Hemoglobin 11.7 g/dL (13.5-17.5); Lymphocytes # (auto) 1.1 10 ^3/uL (0.4-5.4); Lymphocytes % (auto) 14.8 % (10.0-50.0); Mean Corpuscular Hemoglobin 32.1 pg (28.0-32.0); Mean Corpuscular Hgb Conc. 34.8 g/dL (32.0-36.0); Mean Corpuscular Volume 92.2 fL (80.0-100.0); Monocytes # (auto) 0.6 10 ^3/uL (0-1.3); Neutrophils # (auto) 5.4 10 ^3/uL (1.6-8.6); Neutrophils % (auto) 72.8 % (37.0-80.0); Nucleated Red Blood Cells % 0.1 %; Red Blood Cells 3.65 10^6/uL (4.5-5.90); Red Cell Distribution Width 12.3 % (11.8-14.3); White Blood Cell 7.5 10^3/uL (4.4-10.8)
[2021-07-21 05:55] LABS: Potassium 3.8 mmol/L (3.5-5.1)
[2021-07-21 05:57] VITALS: BP 139/81
[2021-07-21 06:00] LABS: BUN/Creatinine Ratio 34.1; Calcium 9.6 mg/dL (8.5-10.1)
[2021-07-21 09:00] VITALS: BP 147/87
[2021-07-21] MEDS: AMIODARONE HCL 200 MG TAB PO SCH ×2 (09:19→22:07)
[2021-07-21] MEDS: chlordiazePOXIDE HCL 25 MG CAP PO SCH ×2 (09:20→22:07)
[2021-07-21] MEDS: LACTULOSE 20Gm/30ML SOLN PO SCH (09:20)
[2021-07-21] MEDS: PANTOPRAZOLE 40 MG/10 ML VIAL INJ IV SCH (09:20)
[2021-07-21] MEDS: ENOXAPARIN SOD 40 MG/0.4 ML SYRINGE SC SCH (09:20)
[2021-07-21] MEDS: FUROSEMIDE 20 MG/2 ML VIAL IV SCH (09:20)
[2021-07-21] MEDS: Pro-Stat SF 30ml Vanilla PO SCH ×2 (09:21→22:08)
[2021-07-21] MEDS: SODIUM CHLOR 0.9% PF (SALINE LOCK) 10ML VIAL/SYR IV SCH ×2 (09:22→22:06)
[2021-07-21 13:00] VITALS: BP 109/66
[2021-07-21] MEDS: guaiFENesin 200 MG/10 ML UD PO PRN ×2 (14:31→22:07)
[2021-07-21 17:00] VITALS: BP 106/67
[2021-07-21 21:52] VITALS: BP 136/80
[2021-07-22] MEDS: METOCLOPRAMIDE HCL 5MG/ml INJ 2ml VIAL IV SCH ×3 (02:15→17:08)
[2021-07-22 04:37] VITALS: BP 147/77
[2021-07-22 07:18] LABS: Basophils # (auto) 0.1 10 ^3/uL (0-0.2); Basophils % (auto) 0.5 % (0.0-2.0); Eosinophils # (auto) 0.2 10 ^3/uL (0-0.8); Eosinophils % (auto) 1.9 % (0.0-7.0); Hematocrit 33.1 % (41.0-53.0); Hemoglobin 11.8 g/dL (13.5-17.5); Lymphocytes # (auto) 1.1 10 ^3/uL (0.4-5.4); Lymphocytes % (auto) 11.6 % (10.0-50.0); Mean Corpuscular Hemoglobin 32.3 pg (28.0-32.0); Mean Corpuscular Hgb Conc. 35.6 g/dL (32.0-36.0); Mean Corpuscular Volume 90.7 fL (80.0-100.0); Monocytes # (auto) 0.9 10 ^3/uL (0-1.3); Monocytes % (auto) 9.4 % (0.0-12.0); Neutrophils # (auto) 7.1 10 ^3/uL (1.6-8.6); Neutrophils % (auto) 76.6 % (37.0-80.0); Red Blood Cells 3.65 10^6/uL (4.5-5.90); Red Cell Distribution Width 12.2 % (11.8-14.3); White Blood Cell 9.3 10^3/uL (4.4-10.8)
[2021-07-22 07:30] LABS: Potassium 3.4 mmol/L (3.5-5.1)
[2021-07-22 07:32] LABS: BUN/Creatinine Ratio 32.5
[2021-07-22 09:00] VITALS: BP 140/88
[2021-07-22] MEDS: SODIUM CHLOR 0.9% PF (SALINE LOCK) 10ML VIAL/SYR IV SCH (10:00)
[2021-07-22] MEDS: ENOXAPARIN SOD 40 MG/0.4 ML SYRINGE SC SCH (10:35)
[2021-07-22] MEDS: LACTULOSE 20Gm/30ML SOLN PO SCH (10:35)
[2021-07-22] MEDS: PANTOPRAZOLE 40 MG/10 ML VIAL INJ IV SCH (10:35)
[2021-07-22] MEDS: FUROSEMIDE 20 MG/2 ML VIAL IV SCH (10:36)
[2021-07-22] MEDS: chlordiazePOXIDE HCL 25 MG CAP PO SCH ×2 (10:37→21:30)
[2021-07-22] MEDS: AMIODARONE HCL 200 MG TAB PO SCH ×2 (10:38→21:29)
[2021-07-22] MEDS: Pro-Stat SF 30ml Vanilla PO SCH ×2 (10:38→21:30)
[2021-07-22] MEDS ORDERED: POTASSIUM CHL 20 Meq TABLET PO ONE (12:15)
[2021-07-22 13:00] VITALS: BP 123/70
[2021-07-22] MEDS: ACETAMINOPHEN 325 MG TAB PO PRN (15:29)
[2021-07-22 17:00] VITALS: BP 109/54
[2021-07-23] VITALS: BP 109/56
[2021-07-23] MEDS: SODIUM CHLOR 0.9% PF (SALINE LOCK) 10ML VIAL/SYR IV SCH ×3 (03:20→20:50)
[2021-07-23] MEDS: METOCLOPRAMIDE HCL 5MG/ml INJ 2ml VIAL IV SCH ×3 (03:21→17:49)
[2021-07-23 04:00] VITALS: BP 122/75
[2021-07-23] MEDS: ACETAMINOPHEN 325 MG TAB PO PRN ×3 (05:15→17:49)
[2021-07-23 06:36] LABS: Basophils # (auto) 0.1 10 ^3/uL (0-0.2); Basophils % (auto) 0.5 % (0.0-2.0); Eosinophils # (auto) 0.1 10 ^3/uL (0-0.8); Eosinophils % (auto) 0.4 % (0.0-7.0); Hematocrit 33.6 % (41.0-53.0); Hemoglobin 11.7 g/dL (13.5-17.5); Lymphocytes # (auto) 1.2 10 ^3/uL (0.4-5.4); Lymphocytes % (auto) 8.8 % (10.0-50.0); Mean Corpuscular Hemoglobin 31.9 pg (28.0-32.0); Mean Corpuscular Hgb Conc. 34.9 g/dL (32.0-36.0); Mean Corpuscular Volume 91.5 fL (80.0-100.0); Monocytes # (auto) 1.4 10 ^3/uL (0-1.3); Monocytes % (auto) 9.9 % (0.0-12.0); Neutrophils # (auto) 11.1 10 ^3/uL (1.6-8.6); Neutrophils % (auto) 80.4 % (37.0-80.0); Nucleated Red Blood Cells % 0.1 %; Red Blood Cells 3.67 10^6/uL (4.5-5.90); Red Cell Distribution Width 12.6 % (11.8-14.3); White Blood Cell 13.7 10^3/uL (4.4-10.8)
[2021-07-23 06:51] LABS: Calcium 9.5 mg/dL (8.5-10.1); Potassium 3.9 mmol/L (3.5-5.1)
[2021-07-23 06:58] LABS: BUN/Creatinine Ratio 29.8
[2021-07-23 08:40] VITALS: BP 99/62
[2021-07-23] MEDS: PANTOPRAZOLE 40 MG/10 ML VIAL INJ IV SCH (09:54)
[2021-07-23] MEDS: FUROSEMIDE 20 MG/2 ML VIAL IV SCH (09:56)
[2021-07-23] MEDS: LACTULOSE 20Gm/30ML SOLN PO SCH (10:00)
[2021-07-23] MEDS: ENOXAPARIN SOD 40 MG/0.4 ML SYRINGE SC SCH (10:03)
[2021-07-23] MEDS: chlordiazePOXIDE HCL 25 MG CAP PO SCH ×2 (10:03→20:59)
[2021-07-23] MEDS: AMIODARONE HCL 200 MG TAB PO SCH ×2 (10:03→20:59)
[2021-07-23] MEDS: Pro-Stat SF 30ml Vanilla PO SCH ×2 (10:04→21:01)
[2021-07-23 13:06] VITALS: BP 117/61
[2021-07-23 16:12] VITALS: BP 105/70
[2021-07-23] MEDS: ALBUTEROL SULF 2.5 MG/0.5ML(0.5%) NEB SOLN NEB PRN (18:52)
[2021-07-23 22:00] VITALS: BP 109/62
[2021-07-23] MEDS ORDERED: LACTULOSE 20Gm/30ML SOLN PO ONE (22:30)
[2021-07-23] MEDS: HYDROcodone-ACET 5/325MG TAB PO PRN (22:44)
[2021-07-24] MEDS: METOCLOPRAMIDE HCL 5MG/ml INJ 2ml VIAL IV SCH ×3 (02:18→18:09)
[2021-07-24] MEDS: ACETAMINOPHEN 325 MG TAB PO PRN ×3 (02:23→22:48)
[2021-07-24 02:24] VITALS: BP 119/71
[2021-07-24 04:41] VITALS: BP 105/70
[2021-07-24 07:25] LABS: Basophils # (auto) 0.1 10 ^3/uL (0-0.2); Basophils % (auto) 0.4 % (0.0-2.0); Eosinophils # (auto) 0 10 ^3/uL (0-0.8); Eosinophils % (auto) 0.1 % (0.0-7.0); Hematocrit 31.6 % (41.0-53.0); Hemoglobin 10.7 g/dL (13.5-17.5); Lymphocytes # (auto) 1.1 10 ^3/uL (0.4-5.4); Lymphocytes % (auto) 7.9 % (10.0-50.0); Mean Corpuscular Hemoglobin 31.8 pg (28.0-32.0); Mean Corpuscular Volume 93.5 fL (80.0-100.0); Monocytes # (auto) 1.6 10 ^3/uL (0-1.3); Monocytes % (auto) 10.9 % (0.0-12.0); Neutrophils # (auto) 11.5 10 ^3/uL (1.6-8.6); Neutrophils % (auto) 80.7 % (37.0-80.0); Nucleated Red Blood Cells % 0.2 %; Red Blood Cells 3.38 10^6/uL (4.5-5.90); Red Cell Distribution Width 12.6 % (11.8-14.3); White Blood Cell 14.2 10^3/uL (4.4-10.8)
[2021-07-24 07:54] LABS: Calcium 9.6 mg/dL (8.5-10.1); Potassium 4.1 mmol/L (3.5-5.1)
[2021-07-24 07:56] LABS: BUN/Creatinine Ratio 24.5
[2021-07-24 09:00] VITALS: BP 112/68
[2021-07-24] MEDS: SODIUM CHLOR 0.9% PF (SALINE LOCK) 10ML VIAL/SYR IV SCH ×2 (10:11→21:35)
[2021-07-24] MEDS: LACTULOSE 20Gm/30ML SOLN PO SCH (10:12)
[2021-07-24] MEDS: DOCUSATE SOD 100 MG CAP PO SCH ×2 (10:12→22:30)
[2021-07-24] MEDS: AMIODARONE HCL 200 MG TAB PO SCH ×2 (10:13→22:30)
[2021-07-24] MEDS: ENOXAPARIN SOD 40 MG/0.4 ML SYRINGE SC SCH (10:13)
[2021-07-24] MEDS: chlordiazePOXIDE HCL 25 MG CAP PO SCH ×2 (10:13→22:31)
[2021-07-24] MEDS: PANTOPRAZOLE 40 MG/10 ML VIAL INJ IV SCH (10:14)
[2021-07-24] MEDS: Pro-Stat SF 30ml Vanilla PO SCH ×2 (10:14→22:00)
[2021-07-24] MEDS: FUROSEMIDE 20 MG/2 ML VIAL IV SCH (10:15)
[2021-07-24] MEDS: HYDROcodone-ACET 5/325MG TAB PO PRN ×2 (10:19→20:40)
[2021-07-24 13:00] VITALS: BP 102/68
[2021-07-24] MEDS ORDERED: PIPERACILLIN-TAZOB 3.375GM 100 ML IV ONE (13:30)
[2021-07-24] MEDS: PIPERACILLIN-TAZOB 3.375GM 100 ML IV SCH ×2 (14:28→21:36)
[2021-07-24 17:00] VITALS: BP 112/68
[2021-07-24] MEDS: ALBUTEROL SULF 2.5 MG/0.5ML(0.5%) NEB SOLN NEB PRN (19:05)
[2021-07-24 21:28] VITALS: BP 114/52
[2021-07-25] MEDS: METOCLOPRAMIDE HCL 5MG/ml INJ 2ml VIAL IV SCH ×2 (03:46→09:43)
[2021-07-25] MEDS: ACETAMINOPHEN 325 MG TAB PO PRN ×2 (05:18→14:46)
[2021-07-25 05:34] VITALS: BP 112/61
[2021-07-25] MEDS: PIPERACILLIN-TAZOB 3.375GM 100 ML IV SCH ×2 (06:00→14:27)
[2021-07-25 06:17] LABS: Basophils # (auto) 0 10 ^3/uL (0-0.2); Basophils % (auto) 0.2 % (0.0-2.0); Eosinophils # (auto) 0 10 ^3/uL (0-0.8); Eosinophils % (auto) 0.1 % (0.0-7.0); Hematocrit 31.2 % (41.0-53.0); Hemoglobin 10.7 g/dL (13.5-17.5); Lymphocytes % (auto) 7.4 % (10.0-50.0); Mean Corpuscular Hemoglobin 32.1 pg (28.0-32.0); Mean Corpuscular Hgb Conc. 34.2 g/dL (32.0-36.0); Mean Corpuscular Volume 93.8 fL (80.0-100.0); Monocytes # (auto) 1.2 10 ^3/uL (0-1.3); Monocytes % (auto) 9.1 % (0.0-12.0); Neutrophils # (auto) 11.2 10 ^3/uL (1.6-8.6); Neutrophils % (auto) 83.2 % (37.0-80.0); Red Blood Cells 3.32 10^6/uL (4.5-5.90); Red Cell Distribution Width 12.5 % (11.8-14.3); White Blood Cell 13.5 10^3/uL (4.4-10.8)
[2021-07-25 06:23] LABS: Anion Gap 11 (5-15); BUN/Creatinine Ratio 23.4; Blood Urea Nitrogen 26 mg/dL (7-18); Calcium 8.9 mg/dL (8.5-10.1); Carbon Dioxide 22 mmol/L (21-32); Chloride 99 mmol/L (98-107); GFR African American 89 mL/min; GFR Non-African American 74 mL/min; Glucose 110 mg/dL (74-106); Potassium 4.1 mmol/L (3.5-5.1); Sodium 132 mmol/L (136-145)
[2021-07-25 09:00] VITALS: BP 112/61
[2021-07-25] MEDS: chlordiazePOXIDE HCL 25 MG CAP PO SCH (09:42)
[2021-07-25] MEDS: DOCUSATE SOD 100 MG CAP PO SCH (09:42)
[2021-07-25] MEDS: LACTULOSE 20Gm/30ML SOLN PO SCH (09:42)
[2021-07-25] MEDS: PANTOPRAZOLE 40 MG/10 ML VIAL INJ IV SCH (09:42)
[2021-07-25] MEDS: ENOXAPARIN SOD 40 MG/0.4 ML SYRINGE SC SCH (09:45)
[2021-07-25] MEDS: AMIODARONE HCL 200 MG TAB PO SCH (09:48)
[2021-07-25] MEDS: FUROSEMIDE 20 MG/2 ML VIAL IV SCH (09:54)
[2021-07-25] MEDS: SODIUM CHLOR 0.9% PF (SALINE LOCK) 10ML VIAL/SYR IV SCH (09:54)
[2021-07-25] MEDS: Pro-Stat SF 30ml Vanilla PO SCH (09:54)
[2021-07-25] MEDS ORDERED: AMOX500T86 PO (10:43)
[2021-07-25] MEDS ORDERED: ASPI1TAB20 PO (10:43)
[2021-07-25] MEDS ORDERED: LACT10SO3 PO (10:43)
[2021-07-25] MEDS ORDERED: FURO1TAB33 PO (10:43)
[2021-07-25] MEDS ORDERED: AMIO200T33 PO (10:47)
[2021-07-25 13:00] VITALS: BP 119/95
[2021-07-25 15:53] VITALS: BP 112/61
[2021-07-25 17:00] VITALS: BP 105/61
== END 2021-07-25 19:35 | disposition home or self-care (01) | DRG 130 ==
LOC: EDBD 13:55 → ER 13:55 → OVERFLOW 16:39 → ICU CENTRL 07-08 17:23 → ICU WEST 07-12 22:04 → TELE-WESTW 07-19 15:22
PROVIDERS: ADMIT Registered Nurse; ATTEND Internal Medicine Pulmonary Disease
PROC: 5A1955Z Respiratory Ventilation, Greater than 96 Consecutive Hours (ICD-10-PCS; principal; 2021-07-07)
PROC: 0BH17EZ Insertion of Endotracheal Airway into Trachea, Via Natural or Artificial Opening (ICD-10-PCS; 2021-07-07)
PROC: 05HB33Z Insertion of Infusion Device into Right Basilic Vein, Percutaneous Approach (ICD-10-PCS; 2021-07-10)
PROC: B54MZZA Ultrasonography of Right Upper Extremity Veins, Guidance (ICD-10-PCS; 2021-07-10)
PROC: 5A09357 Assistance with Respiratory Ventilation, Less than 24 Consecutive Hours, Continuous Positive Airway Pressure (ICD-10-PCS; 2021-07-18)
DX: J96.01 Acute respiratory failure with hypoxia (principal); I46.9 Cardiac arrest, cause unspecified; N17.0 Acute kidney failure with tubular necrosis; R57.0 Cardiogenic shock; J69.0 Pneumonitis due to inhalation of food and vomit; G93.41 Metabolic encephalopathy; I21.4 Non-ST elevation (NSTEMI) myocardial infarction; K56.7 Ileus, unspecified; Z66 Do not resuscitate; E87.2 Acidosis; Z20.822 Contact with and (suspected) exposure to COVID-19; R65.10 Systemic inflammatory response syndrome (SIRS) of non-infectious origin without acute organ dysfunction; I50.43 Acute on chronic combined systolic (congestive) and diastolic (congestive) heart failure; I44.7 Left bundle-branch block, unspecified; F10.10 Alcohol abuse, uncomplicated; G93.1 Anoxic brain damage, not elsewhere classified; E78.5 Hyperlipidemia, unspecified; I25.10 Atherosclerotic heart disease of native coronary artery without angina pectoris; E78.00 Pure hypercholesterolemia, unspecified; I11.0 Hypertensive heart disease with heart failure; I42.0 Dilated cardiomyopathy; R74.01 Elevation of levels of liver transaminase levels; E87.6 Hypokalemia; I47.1 Supraventricular tachycardia; I82.611 Acute embolism and thrombosis of superficial veins of right upper extremity; N13.6 Pyonephrosis; N20.0 Calculus of kidney; Z99.11 Dependence on respirator [ventilator] status
CPT/HCPCS: 31500; 36415; 36569; 36600; 70450; 70551; 71045; 71260; 72125; 74177; 80048; 80053; 80061; 80307; 80320; 81001; 82805; 82962; 83036; 83605; 83615; 83735; 83880; 84100; 84132; 84478; 84484; 85007; 85025; 85027; 85610; 85730; 86703; 86704; 86706; 86708; 86803; 86850; 86900; 86901; 87040; 87070; 87081; 87086; 87205; 87340; 93005; 93306; 93886; 93971; 94002; 94003; 94640; 94660; 95819; 96361; 96365; 97110; 97116; 97530; 99291; C9113; G0378; J0330; J0696; J1815; J2250; J2543; J2704; J3480; J3490; J7060; J7131